=== PATIENT | male | born 1935 | race Caucasian/White ===

== ENCOUNTER → 2016-08-05 | Outpatient (CLI) | payer MEDICARE ==
[~2016-08-05] MED LIST: ANORO ELLIPTA 62.1 - IH; CARDIZEM30 MG PO; DELTASONE DPS10 MG PO; DIGOXIN125 MCG PO; DUONEB DPS3 ML IH; ELIQUIS2.5 MG PO; FLOMAX DPS0.4 MG PO; LASIX DPS80 MG PO; LORAZEPAM I2 MG/1 ML PO; MIRALAX PACKET17 GM PO; MIRTAZAPINE7.5 MG PO; NORCO 10-325 T1 EACH PO; PRILOSEC DPS20 MG PO; PROSCAR DPS5 MG PO; PULMICORT0.5 MG/2 M IH; ROCALTROL DP0.25 MCG PO; ROXANOL 20MG20 MG/ML SL; TOPROL XL DPS50 MG PO; VITAMIN D31000 UNIT PO
== END | disposition home or self-care (01) ==
LOC: RAD.S 09:00
DX: R06.02 Shortness of breath (principal); R60.9 Edema, unspecified; J98.4 Other disorders of lung

== ENCOUNTER 2016-08-23 15:32 | Inpatient (IN) | payer MEDICARE, SELFPAY ==
[~2016-08-23] VITALS: Ht 182.9 cm; Wt 87.6 kg
--- NOTE | ~2016-08-23 | ECH ---
Transthoracic Echocardiography Report (TTE) Demographics Patient Name LUCAS CLAROS Date of Study 08/24/2016 Patient Number [id number] Visit Number [id number] Date of 1935 Room Number 420 Accession Number [id number] Gender Male Age 81 year(s) Referring Nile Soto Structures Assembler Radha Hernandez [facility] [place] Physician Physician Interpreting Elissa Goss MD Right Of Way Maintenance Supervisor Physician Supervising Ordering Physician Nile Soto MD, MD/P Nurse Stress Door To Door Fundraising Collector Conclusions Summary Technically adequate exam. The estimated left ventricular ejection fraction is 60%. Diastolic assessment reveals Grade II pseudonormal diastolic function . There is mild aortic stenosis by the Continuity Equation. The peak velocity is 2.8 m/s, the mean gradient is 18 mmHg, and the valve area based on the continuity equation is 1.4 cm2, stroke volume index is 40 ml/m2. Peak velocity obtained in apical view. There is mild aortic regurgitation by color Doppler. Mild tricuspid regurgitation by color Doppler. There is mild pulmonary hypertension. The pulmonary pressure (RVSP) is 39 mmHg. Procedure Type of Study TTE procedure:Echo Complete SF. Procedure Date Date: 08/24/2016 Start: 12:21 PM Technical Quality: Adequate visualization Indications:Congestive heart failure, Coronary artery disease, Hypertension, edema and Shortness of breath. Appropriate Use Criteria: 9 Height: 72 inches Weight: 195 pounds BSA: 2.11 m Rhythm: Within normal limits HR: 65 bpm BP: 127/65 mmHg M-Mode/2D Measurements LV Diastolic Dimension: 4.51 cm LV Systolic Dimension: 2.77 cm LV Septum Diastolic: 1.05 cm LV PW Diastolic: 1.01 cm AO Root Dimension: 3.33 cm Cardiac Output: 5.52 l/min LA Dimension: 3.44 cm Cardiac Index: 2.62 l/min*m RV Diastolic Dimension: 4.47 cm LA volume index: 29 ml/m LVOT: 1.97 cm LVOT VTI: 27.86 cm RV Base: 3.5 cm LV Stroke volume: 84.88 ml RV Mid: 2 cm LV Stroke volume index: 40.23 ml/m TAPSE: 3 cm TDI-S': 18 cm/s Doppler Measurements AV Peak Velocity: 2.8 m/s MV Peak E-Wave: 1.3 m/s AV Peak Gradient: 31.36 mmHg MV Peak A-Wave: 0.97 m/s AV Mean Gradient: 18.13 mmHg MV E/A Ratio: 1.33 LVOT Peak Velocity: 1.24 m/s MV P1/2t: 43.3 msec AV Area (Continuity):1.41 cm AV P1/2t: 276.8 msec MV Deceleration Time: 157.5 msec TR Velocity:2.93 m/s MV Area (PHT): 5.09 cm TR Gradient:34.34 mmHg PV Peak Velocity: 1.01 m/s Estimated RAP:5 mmHg PV Peak Gradient: 4.05 mmHg Estimated RVSP: 39 mmHg Estimated PASP: 39.34 mmHg E' Septal Velocity: 0.06 m/s A' Septal Velocity: 0.12 m/s E' Lateral Velocity: 0.08 m/s A' Lateral Velocity: 0.16 m/s RA Area: 17.72 cm Findings Left Ventricle Normal left ventricle size and function. Diastolic assessment reveals Grade II pseudonormal diastolic function . Right Ventricle Normal right ventricle structure and function. Left Atrium Normal left atrial size. Right Atrium Normal right atrial size. Mitral Valve Mild mitral annular calcification. Mild mitral regurgitation by color Doppler. Aortic Valve There is mild aortic stenosis by the Continuity Equation. The peak velocity is 2.8 m/s, the mean gradient is 18 mmHg, and the valve area based on the continuity equation is 1.4 cm2, stroke volume index is 40 ml/m2. Peak velocity obtained in apical view. There is mild aortic regurgitation by color Doppler. Tricuspid Valve Normal tricuspid valve structure and function. Mild tricuspid regurgitation by color Doppler. There is mild pulmonary hypertension. The pulmonary pressure (RVSP) is 39 mmHg. Pulmonic Valve The pulmonic valve is not well visualized. Pericardial Effusion No evidence of pericardial effusion. Miscellaneous Visualized portions of the aortic root and ascending aorta appear normal in size. Pleural Effusion No evidence of pleural effusion. Signature
--- NOTE | ~2016-08-23 | WND ---
ADMIT: 08/23/2016 RM/LOC: 420 [facility] MR#: [id number] [id number] [facility] [address] [place] [id number] [place] [address] Wound Care Clinic SEX: M AGE: 81 : 1935 DATE OF VISIT: 08/24/2016 TIME OF VISIT: 40 minutes. HISTORY OF PRESENT ILLNESS: Lucas is an 81-year-old male, who was a direct admit for Dr. Dowd for shortness of breath, history of chronic kidney disease, stage 4 and diastolic heart failure, peripheral vascular disease, and COPD. Wound Care was consulted for bilateral lower extremity wounds. Lucas's spouse is at the bedside right now and she states that currently she is wrapping bilateral lower extremities with the MEGAN wraps on during the day, off at night. She states that his field tech Dr. Gregory recommended this. Dr. Gregory states that the swelling is secondary to his heart, not venous insufficiency. Lucas reports that in the past, he has had Unna boots on, but he really did not like the way they feel. He denies any complaints of claudication. He denies any shortness of breath. PAST MEDICAL HISTORY: 1. Chronic kidney disease, stage 4. 2. Coronary artery disease. 3. Peripheral vascular disease. 4. Hypertension. 5. Hyperlipidemia. 6. COPD. 7. History of GI bleed secondary to NSAIDs. 8. Gastritis. 9. Reflux. 10.Diffuse arthritis. ALLERGIES: Iodine and Advair. SOCIAL HISTORY: He has a history of smoking, but he is not currently smoking. He is and resides in [place], [place]. 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 PAST SURGICAL HISTORY: Includes a thyroid biopsy. FAMILY HISTORY: Mother of colon cancer. Father in the 50s with pneumonia. REVIEW OF SYSTEMS: A 10-point review of systems was reviewed and was negative other than that stated in the HPI. PHYSICAL EXAMINATION: VITAL SIGNS: Temperature 96.9 degrees Fahrenheit, pulse 94, respirations 14, blood pressure 129/74, pulse ox 98% on room air. EXTREMITIES: Assessment of bilateral lower extremity shows pale, but warm to touch bilateral lower extremities. He has 2+ dorsalis pedis pulse bilaterally. He has minimal hair growth below the knee. He has a ruptured bulla to the dorsal surface of his left foot that measures 2 cm in width x 1 cm in length. Wound bed is 100% pink. He has an intact bulla to the dorsal ADMIT: 08/23/2016 RM/LOC: 420 [facility] MR#: [id number] [address] [place] [id number] LUCAS CLAROS [address] [place] [address] Wound Care Clinic SEX: M AGE: 81 : 1935 surface of his right foot that is 2 cm in width x 1 cm in length. He has a ruptured bulla to the anterior right lower extremity that measures 3 cm in length x 1.5 cm in width. Wound bed is 100% pink. He has 3+ pitting edema to bilateral lower extremities. He has capillary refill 4 seconds, discolored toes on his right foot. ASSESSMENT: 1. Peripheral vascular disease. 2. Congestive heart failure. 3. Ulcers to bilateral lower extremities. PLAN: After cleansing his lower extremities well with soap and water, they are going to apply MEGAN wraps on during the day and off at night. Over the ruptured blisters, they will use a Mepilex border dressing and change it twice weekly with bath. WOCN will continue to follow while he is in the hospital. I would like to thank Dr. Dowd for allowing us to participate in his care. Janett Davis GARY/ deedee JOB #: [id number] CC: Avelino Dowd, Attending Physician Avelino Dowd, Family Physician
--- NOTE | 2016-08-24 08:17 | HP ---
ADMIT: 08/23/2016 RM/LOC: 420 [facility] MR#: [id number] [address] [address] L[place] [address] History and Physical SEX: M AGE: 81 : 1935 DATE OF SERVICE: CHIEF COMPLAINT: Shortness of breath. HISTORY OF PRESENT ILLNESS: This is an 81-year-old gentleman. He has history of chronic kidney disease stage IV and diastolic heart failure as well as peripheral vascular disease and COPD. He presented to the office with about a 3-day history of increased edema in his upper extremities, legs, and even into the face. He reports having more shortness of breath and dyspnea especially with lying down. He does sleep in his recliner. Of late, he has also noted increased lower extremity blisters which are problem as well for him and he has had some problems with this. Overall, he is not having increased cough, fever, chills, or increased sputum production. He overall just feels poorly. PAST MEDICAL HISTORY: Includes: 1. Chronic kidney disease stage IV. 2. Coronary artery disease. 3. Peripheral vascular disease. 4. Hypertension. 5. Hyperlipidemia. 6. COPD. 7. History of a GI bleed secondary to NSAID's. 8. Gastritis. 9. Reflux. 10.Diffuse arthritis. ALLERGIES: IODINE, AND HE HAD TROUBLE TAKING ADVAIR. SOCIAL HISTORY: History of smoking but none currently. He is . Enjoys woodworking. History of atrial fibrillation, currently rhythm controlled. 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 PAST SURGICAL HISTORY: Surgeries include a thyroid biopsy. FAMILY HISTORY: Mother of colon cancer. Father in 50s with pneumonia. He has 1 sister. REVIEW OF SYSTEMS: Other complete review of systems obtained and negative except as above. PHYSICAL EXAMINATION: VITAL SIGNS: Temperature 97.2 pulse 89, respirations 20, blood pressure 156/62, ox saturation 97% on 2 L of oxygen by nasal cannula. GENERAL: He is "puffy" appearing 81-year-old gentleman, in no apparent distress. He is a little bit breathless with minimal exertion and long sentences. HEENT: Pupils equal, round, and reactive to light and accommodation. His extraocular muscles are intact. His throat is clear. NECK: Supple. ADMIT: 08/23/2016 RM/LOC: 420 [facility] MR#: [id number] [id number] [address] LUCAS CLAROS [address] [place] [address] History and Physical SEX: M AGE: 81 : 1935 HEART: Distant but regular rate and rhythm. LUNGS: Diminished bilaterally. He has faint end-expiratory wheezes bilaterally. ABDOMEN: Soft, without any tenderness. He has positive bowel sounds. EXTREMITIES: His lower extremities have 4+ pitting edema up to his thighs. He has edema on the dependent portions of his upper extremities as well. His face does appear puffy. MUSCULOSKELETAL: He can move all extremities equally bilaterally. NEUROLOGIC: Cranial nerves are intact. Gait is with a cane. LABORATORY AND X-RAY DATA: His CBC with a white count of 8.2, hemoglobin 10.9, and platelets of 168. CT scan of his chest without contrast just shows some COPD and atherosclerotic vascular calcifications. Other labs are pending. ASSESSMENT: 1. Acute on chronic diastolic congestive heart failure. 2. Chronic kidney disease, stage IV. 3. Diffuse edema. 4. History of atrial fibrillation. 5. Coronary artery disease. 6. Peripheral vascular disease. 7. Wound on his feet. PLAN: He is admitted to the hospital. We will treat with IV Lasix as I do not believe his oral Lasix will work in this setting of profound edema. He is up 6 pounds in the last week. So, we will increase his diuresis and follow his symptoms closely and follow his kidney function closely. Avelino Dowd MD/ deedee JOB #: [id number] CC: Avelino Dowd, Attending Physician Avelino Dowd, Family Physician
[2016-08-26] MEDS ORDERED: FLOMAX DPS0.4 MG PO (18:10)
[2016-08-26] MEDS ORDERED: ROCALTROL DP0.25 MCG PO (18:10)
[2016-08-26] MEDS ORDERED: PROSCAR DPS5 MG PO (18:10)
[2016-08-26] MEDS ORDERED: TOPROL XL DPS50 MG PO (18:11)
[2016-08-26] MEDS ORDERED: DELTASONE DPS10 MG PO (18:11)
[2016-08-26] MEDS ORDERED: NORCO 10-325 T1 EACH PO (18:11)
[2016-08-26] MEDS ORDERED: LASIX DPS80 MG PO (18:11)
[2016-08-26] MEDS ORDERED: DUONEB DPS3 ML IH (18:12)
[2016-08-26] MEDS ORDERED: MIRTAZAPINE7.5 MG PO (18:12)
[2016-08-26] MEDS ORDERED: ANORO ELLIPTA 62.1 - IH (18:12)
[2016-08-26] MEDS ORDERED: ELIQUIS2.5 MG PO (18:13)
[2016-08-26] MEDS ORDERED: VITAMIN D31000 UNIT PO (18:13)
[2016-08-26] MEDS ORDERED: PRILOSEC DPS20 MG PO (18:13)
[2016-08-26] MEDS ORDERED: PULMICORT0.5 MG/2 M IH (18:13)
--- NOTE | 2016-08-29 06:42 | DS ---
ADMIT: 08/23/2016 RM/LOC: 420 [facility] MR#: [id number] [address] [address] LUCAS CLAROS [address] [address] General Discharge Summary SEX: M AGE: 81 : 1935 ADMISSION DATE: 08/23/2016 DISCHARGE DATE: 08/25/2016 FINAL DIAGNOSES: 1. Acute on chronic diastolic congestive heart failure. 2. Chronic hypoxic respiratory failure. 3. Diffuse edema. 4. Shortness of breath. 5. Peripheral vascular disease. 6. Severe chronic obstructive pulmonary disease. 7. Elevated troponin. REASON FOR ADMISSION: This is an 81-year-old gentleman presented to clinic with increased shortness of breath and diffuse edema. He was set up to be admitted to the hospital. He also has chronic kidney disease, stage 4. He was admitted to the hospital, found to have elevated troponin, placed on IV heparin, had bilateral upper and lower extremity Dopplers, which were negative. He did not need any more oxygen than usual, so he is felt to be low risk for PE. Echo and EKG were unchanged. His creatinine was 3.1, which is a little bit above his normal, was given IV diuresis and ultimately had some atrial fibrillation with RVR and put on some Lopressor. He had lower extremity edema and wounds, and Wound Care saw him there. He had Ashutosh wraps placed. He was also set up to be nebulize budesonide. By day of discharge, his weight had gone from 198 to 193 pounds. He was 100% on his 1 L of oxygen and was feeling much better. He was set up to be discharged to home. DISCHARGE MEDICATIONS: 1. Prednisone 10 mg daily. 2. Flomax 0.4 mg daily. 3. Hydrocodone 10/325, 1/2 pill q.4 hours. 4. Proscar 5 mg daily. 5. Remeron 7.5 mg at bedtime. ADMIT: 08/23/2016 RM/LOC: 420 [facility] MR#: [id number] [address] [address] [place] [address] General Discharge Summary SEX: M AGE: 81 : 1935 6. Rocaltrol 0.25 mg daily. 7. Toprol-XL 50 mg daily. 8. Vitamin D 1000 units daily. 9. Anoro Ellipta 1 puff daily. 10.DuoNeb q.i.d. 11.Budesonide 0.5 mg b.i.d. 12.Nebulized Eliquis 2.5 mg b.i.d. 13.Omeprazole 20 mg daily. 14.Lasix 80 mg p.o. daily. Follow up with me after having daily weights. Should have a low-salt diet. BMP this coming Monday and follow with me in 1 week. Avelino Dowd MD/ deedee JOB #: [id number] CC: Avelino Dowd MD, Attending Physician Avelino Dowd MD, Family Physician
[2017-03-07] MEDS ORDERED: DIGOXIN125 MCG PO (14:52)
[2017-03-07] MEDS ORDERED: MIRALAX PACKET17 GM PO (14:54)
[2017-03-07] MEDS ORDERED: CARDIZEM30 MG PO (14:54)
[2017-03-07] MEDS ORDERED: LORAZEPAM I2 MG/1 ML PO (14:56)
[2017-03-07] MEDS ORDERED: ROXANOL 20MG20 MG/ML SL (14:58)
== END 2016-08-25 14:17 | disposition home or self-care (01) | DRG 291 ==
LOC: 4PCU 15:32
PROVIDERS: ADMIT Internal Medicine
DX: I13.0 Hypertensive heart and chronic kidney disease with heart failure and stage 1 through stage 4 chronic kidney disease, or unspecified chronic kidney disease (principal); I50.33 Acute on chronic diastolic (congestive) heart failure; J96.11 Chronic respiratory failure with hypoxia; N18.4 Chronic kidney disease, stage 4 (severe); I27.2 Other secondary pulmonary hypertension; N17.9 Acute kidney failure, unspecified; J44.9 Chronic obstructive pulmonary disease, unspecified; L97.919 Non-pressure chronic ulcer of unspecified part of right lower leg with unspecified severity; L97.929 Non-pressure chronic ulcer of unspecified part of left lower leg with unspecified severity; R79.89 Other specified abnormal findings of blood chemistry; I48.91 Unspecified atrial fibrillation; I73.9 Peripheral vascular disease, unspecified; I25.10 Atherosclerotic heart disease of native coronary artery without angina pectoris; E78.5 Hyperlipidemia, unspecified; K21.9 Gastro-esophageal reflux disease without esophagitis; M19.90 Unspecified osteoarthritis, unspecified site; Z87.891 Personal history of nicotine dependence

== ENCOUNTER 2016-09-17 20:54 | Emergency (ER) | payer MEDICARE ==
[~2016-09-17 20:54] MED LIST changes: -CARDIZEM30 MG PO; -DIGOXIN125 MCG PO; -LORAZEPAM I2 MG/1 ML PO; -MIRALAX PACKET17 GM PO; -ROXANOL 20MG20 MG/ML SL
--- NOTE | 2016-09-18 05:31 | ER ---
ADMIT: 09/17/2016 RM/LOC: ER [facility] MR#: [id number] [address] [address] [place] [address] Emergency Room Report SEX: M AGE: 81 : 1935 DATE: 09/17/2016 The patient is an 81-year-old male, chronic O2 dependent COPD, stage 4 chronic kidney disease, paroxysmal atrial fib, recently hospitalized for CHF, hypoxemia from August 23 through . Complains of acute onset left epistaxis tonight. Transported by [facility]. Exam remarkable for left anterior epistaxis, cauterized easily with silver nitrate. Bacitracin applied. Creatinine 3.5, INR 1.03, hemoglobin 10.9, platelets 187. Advised humidified O2, which they will arrange through home oxygen supplier. Trimmed back nasal prongs, so they would not abraded his septum. Advised Vaseline or bacitracin to the septum b.i.d. bilaterally. Educated on how to treat epistaxis at home with Afrin and nasal clamping. Follow up Dr. Dowd as needed. Avni Bonner MD/ nallelyl JOB #: [id number] CC: Avni Bonner MD, Attending Physician Avelino Dowd MD, Family Physician Avelino Dowd MD
[2017-03-07] MEDS ORDERED: DIGOXIN125 MCG PO (14:52)
[2017-03-07] MEDS ORDERED: MIRALAX PACKET17 GM PO (14:54)
[2017-03-07] MEDS ORDERED: CARDIZEM30 MG PO (14:54)
[2017-03-07] MEDS ORDERED: LORAZEPAM I2 MG/1 ML PO (14:56)
[2017-03-07] MEDS ORDERED: ROXANOL 20MG20 MG/ML SL (14:58)
== END 2016-09-17 22:25 | disposition home or self-care (01) ==
LOC: ER 20:54
PROC: 0W3Q3ZZ Control Bleeding in Respiratory Tract, Percutaneous Approach (ICD-10-PCS; principal; 2016-09-17)
DX: R04.0 Epistaxis (principal); I13.0 Hypertensive heart and chronic kidney disease with heart failure and stage 1 through stage 4 chronic kidney disease, or unspecified chronic kidney disease; N18.4 Chronic kidney disease, stage 4 (severe); I50.9 Heart failure, unspecified; I48.0 Paroxysmal atrial fibrillation; E78.5 Hyperlipidemia, unspecified; I25.10 Atherosclerotic heart disease of native coronary artery without angina pectoris; Z87.891 Personal history of nicotine dependence; Z88.8 Allergy status to other drugs, medicaments and biological substances

== ENCOUNTER → 2016-11-17 | Outpatient (CLI) | payer MEDICARE, SELFPAY ==
[~2016-11-17] MED LIST changes: +CARDIZEM30 MG PO; +DIGOXIN125 MCG PO; +LORAZEPAM I2 MG/1 ML PO; +MIRALAX PACKET17 GM PO; +ROXANOL 20MG20 MG/ML SL
== END | disposition home or self-care (01) ==
LOC: RAD.S 15:00
DX: M79.89 Other specified soft tissue disorders (principal)